=== PATIENT | male | born 1975 ===

== ENCOUNTER 2017-12-03 05:21 | Inpatient (IN) | payer OTHER ==
[~2017-12-03] VITALS: Ht 185.4 cm; Wt 118.4 kg
[2017-12-03] VITALS (11 sets, daily range): BP systolic 113–128; BP diastolic 73–86
[~2017-12-03 05:21] MED LIST: NKM
[2017-12-03] MEDS ORDERED: Dexamethasone 4mg/ml vial ONE (07:09)
[2017-12-03] MEDS ORDERED: Lidocaine 1% MPF 10mg/ml 5ml ONE (07:09)
[2017-12-03] MEDS ORDERED: Propofol 200mg/20ml IV ONE (07:09)
[2017-12-03] MEDS ORDERED: fentaNYL 100 mcg/2 mL IV ONE (07:17)
[2017-12-03] MEDS ORDERED: Ketamine 500mg Inj ONE (07:18)
[2017-12-03] MEDS ORDERED: Vancomycin 1gm inj IVPB ONE (07:25)
[2017-12-03] MEDS ORDERED: Thrombin 5000 units spray kit TOPIC ONE (07:25)
[2017-12-03] MEDS ORDERED: Thrombin 5000 units TOPIC ONE (07:25)
[2017-12-03] MEDS ORDERED: Gelfoam Size TOPIC ONE (07:25)
[2017-12-03] MEDS ORDERED: Bupivacaine 0.5% Inj 30 ml vial INJ ONE (07:26)
[2017-12-03] MEDS ORDERED: Gelfoam Absorbable 1gm powder pkt TOPIC ONE (07:26)
[2017-12-03] MEDS ORDERED: Bacitracin 50000 Units Vial ONE (07:26)
[2017-12-03] MEDS ORDERED: Lidocaine 1% 10mg/ml/Epi 0.005mg/ml 30ml vial INJ ONE (07:26)
[2017-12-03] MEDS ORDERED: EPINEPHrine 1mg/1ml Amp ONE (07:26)
[2017-12-03] MEDS ORDERED: Zemuron 50mg/5ml Inj IV ONE (07:31)
[2017-12-03] MEDS ORDERED: Dyna-Hex 2% Top Sol 2oz TOPIC ONE (07:40)
--- NOTE | 2017-12-03 07:50 | Anethesia Preoperative Eval ---
Anesthesia Pre-op PMH/ROS General Date of Evaluation: Dec 03, 2017 Time of Evaluation: 07:20 Anesthesiologist: ASA Score: ASA 2 Mallampati Score Class I : Soft palate, uvula, fauces, pillars visible Class II: Soft palate, uvula, fauces visible Class III: Soft palate, base of uvula visible Class IV: Only hard plate visible Mallampati Classification: Class II Surgeon: tenzin Diagnosis: back pain Surgical Procedure: left sided lumbar 4- sacral 1 microdisectomy Anesthesia History: none Allergies: Coded Allergies: No Known Allergies (Unverified , 12/02/17) Medications: see eMAR Past Medical History Cardiovascular: Denies: HTN, CAD, [place], valve dz, arrhythmia, other Pulmonary: Denies: asthma, COPD, [place], other Gastrointestinal/Genitourinary: Denies: GERD, CRI, ESRD, other Neurologic/Psychiatric: Denies: dementia, CVA, depression/anxiety, TIA, other Endocrine: Denies: DM, hypothyroidism, steroids, other HEENT: Denies: cataract (L), cataract (R), glaucoma, [place] (L), [place] (R), other Hematology/Immune: Denies: anemia, DVT, bleeding disorder, other Musculoskeletal/Integumentary: Denies: OA, RA, DJD, DDD, edema, other Other: obesity Anesthesia Pre-op Phys. Exam Physician Exam Last Vital Signs Date Time Temp Pulse Resp B/P (MAP) Pulse Ox O2 Delivery O2 Flow Rate FiO2 12/03/17 06:00 97.5 62 20 125/77 (93) 97 97.5 12/03/17 05:57 Room Air Constitutional: NAD Cardiovascular: RRR Respiratory: CTA Gastrointestinal: S/NT/ND Airway Exam Mallampati Score: Class II MO: full ROM: full Teeth: intact Dentures: no upper, no lower Anesthesia Pre-op A/P Risk Assessment & Plan Assessment: asa 2 Plan: ETGA Status Change Before Surgery: No Pre-Antibiotics Drug: ancef 2 grams Given Within 1 Hr of Incision: Yes Time Given: 08:30 Karin Crawley M.D. Dec 03, 2017 07:50
[2017-12-03] MEDS ORDERED: Propofol 1,000mg/ 100ml btl IV ONE (08:00)
[2017-12-03] MEDS ORDERED: LR 1000ml ONE (08:00)
[2017-12-03] MEDS ORDERED: NS Irrig 1000ml ONE (08:00)
[2017-12-03] MEDS ORDERED: Sterile Water Irrig 1000ml IRRIG ONE (08:00)
--- NOTE | 2017-12-03 08:14 | Pre-Procedure Note/Attestation ---
Pre-Procedure Note/Attestation Complete Prior to Procedure Planned Procedure: not applicable Procedure Narrative: Left L4-S1 decompression Indications for Procedure Pre-Operative Diagnosis: Back pain with left sided radiculopathy Attestation I attest that I discussed the nature of the procedure; its benefits; risks and complications; and alternatives (and the risks and benefits of such alternatives ), prior to the procedure, with the patient (or the patient's legal inbound sales representative). I attest that, if there was a reasonable possibility of needing a blood transfusion, the patient (or the patient's legal inbound sales representative) was given the [facility] standardized written summary, pursuant to the [place] Blood Safety Act ([place] Health and Safety Code # 1645, as amended). I attest that I re-evaluated the patient just prior to the surgery and that there has been no change in the patient's H&P, except as documented below: Terrence Ramirez Dec 03, 2017 08:14
[2017-12-03] MEDS ORDERED: Acetaminophen (Non formulary) 100 ML IV SCH (09:00)
[2017-12-03] MEDS ORDERED: LR 1000ml 1,000 ML IVLG SCH (09:21)
--- NOTE | 2017-12-03 09:25 | Immediate Post-Op Evaluation ---
Immediate Post-Op Evalulation Immediate Post-Op Evalulation Procedure: left L4-S1 microdiscectomy Date of Evaluation: Dec 03, 2017 Time of Evaluation: 11:26 IV Fluids: LR 1200ml Blood Products: 0 Estimated Blood Loss: 150ml Urinary Output: 300ml Blood Pressure Systolic: 128 Blood Pressure Diastolic: 86 Pulse Rate: 70 Respiratory Rate: 14 O2 Sat by Pulse Oximetry: 100 Temperature (Fahrenheit): 97.3 Pain Score (1-10): 0 Nausea: No Vomiting: No Complications none Patient Status: awake, patent, none Hydration Status: adequate Drug: ancef 2 grams Given Within 1 Hr of Incision: Yes Time Given: 08:30 Karin Crawley M.D. Dec 03, 2017 09:24
[2017-12-03] MEDS ORDERED: Midazolam 2mg/2ml Inj IVP PRN (09:30)
[2017-12-03] MEDS ORDERED: Hydromorphone 0.5mg/0.5ml inj IVP PRN (09:30)
[2017-12-03] MEDS ORDERED: fentaNYL 100 mcg/2 mL IV PRN (09:30)
[2017-12-03] MEDS ORDERED: DiphenhydrAMINE 50mg/ml Inj IVP PRN (09:30)
[2017-12-03] MEDS ORDERED: Labetalol 5mg/ml 20ml vial IV PRN (09:30)
[2017-12-03] MEDS ORDERED: Glycopyrrolate 0.2mg/ml 1ml Vial ONE (10:33)
[2017-12-03] MEDS ORDERED: Neostigmine 1mg/ml 10ml Inj ONE (10:33)
[2017-12-03] MEDS ORDERED: Ketorolac 30mg Inj ONE (10:44)
--- NOTE | 2017-12-03 11:05 | Diagnostic Imaging Report ---
Indication: Intraoperative imaging, back pain and left lower extremity pain Technique: Intraoperative images Comparison: none Findings: Intraoperative images demonstrate surgical tool posterior to L4-5. Impression: Intraoperative imaging, as described
--- NOTE | 2017-12-03 11:41 | 48 Hour Post Anesthesia Eval ---
Post Anesthesia Evaluation Procedure: left L4-S1 microdiscectomy Date of Evaluation: Dec 03, 2017 Time of Evaluation: 11:45 Blood Pressure Systolic: 119 0: 82 Pulse Rate: 67 Respiratory Rate: 22 Temperature (Fahrenheit): 97.4 O2 Sat by Pulse Oximetry: 100 Airway: patent Nausea: No Vomiting: No Pain Intensity: 0 Hydration Status: adequate Mental Status/LOC: patient returned to baseline Post-Anesthesia Complications: none Follow-up care needed: N/A Karin Crawley M.D. Dec 03, 2017 11:41
[2017-12-03] MEDS ORDERED: Hydromorphone 0.5mg/0.5ml inj SUBQ PRN (14:21)
[2017-12-03] MEDS ORDERED: Methocarbamol 750mg tab ORAL PRN (14:22)
[2017-12-03] MEDS: Docusate 100mg cap ORAL SCH (17:06)
[2017-12-03] MEDS: Norco 5mg/325mg tab ORAL PRN ×2 (17:06→22:37)
[2017-12-03] MEDS: ceFAZolin sod 2 GM in D5W 110 ML IV SCH (17:08)
--- NOTE | 2017-12-03 19:15 | Operative Note - Dictated ---
DATE OF OPERATION: 12/03/2017 SURGEON: Terrence Ramirez M.D. INDICATION FOR SURGERY: The patient is a pleasant gentleman, who presented with symptoms of left-sided lumbar radiculopathy and back pain. He had attempted and failed conservative measures. We discussed surgical and non-surgical options. The patient requested to proceed with surgical interventions. RISKS AND BENEFITS DISCUSSION: The patient was appraised of all objectives, benefits, risks, and potential complications of the procedure including, but not limited to, worsening of current status, possible need for further procedures, risk of infection, headache, CSF leak, possible spinal cord injury resulting in paralysis, injury to major blood vessels, chronic hemorrhage, stroke, loss of language function, coma, and even . No assurance was given whether these symptoms will improve following the procedure. Informed consent was obtained and secured in the chart after the patient voiced understanding of these risks and decided to proceed with the operation. PREOPERATIVE DIAGNOSES: 1. L4-L5 and L5-S1 left-sided stenosis. 2. Low back pain. 3. Left-sided lumbar radiculopathy. POSTOPERATIVE DIAGNOSES: 1. L4-L5 and L5-S1 left-sided stenosis. 2. Low back pain. 3. Left-sided lumbar radiculopathy. OPERATIONS: 1. Left-sided L4-L5 and L5-S1 laminotomies and partial fasciectomies for resection of L4-L5 and L5-S1 herniated disc including decompression. 2. Microscope. 3. Fluoroscope. 4. Neuromonitoring. 5. Left-sided L4-L5 and L5-S1 facet joint injections and paraspinal injections for postoperative pain control. 6. Modifier for extra time spent during dissection due to the patient's extremely difficult anatomy and increased BMI, all of which would headed approximately additional 30 to 45 minutes beyond operative time. SURGEON: Terrence Ramirez M.D. FREIGHT SOLICITOR: None. ANESTHESIA: TOOL ANALYST. ESTIMATED BLOOD LOSS: Approximately 30 mL. FINDINGS: Stenosis and decompression at traversing nerve roots at L4-L5 and L5-S1. SPECIMEN SENT: Herniated discs at L4-L5 and L5-S1 transected. COMPLICATIONS: None. TECHNIQUE: The patient was brought into the operating room. He was sedated and intubated by the anesthesia team. He was transferred to the operating table on prone position. Preoperative antibiotics were given. Eyes were taped shut after ointment was applied to prevent corneal abrasion. Marce Hugger was placed over the lower body to maintain control of core body temperature. Ivy catheter was inserted. All pressure points were carefully padded. Neuromonitoring team placed the needles in appropriate position and baselines were obtained. C-arm was brought in and operative levels were . The skin was prepped and draped in the standard surgical fashion. A time-out was taken. A linear incision was performed with a scalpel blade and dissection was carried down to the fascial layer. The fascia was then opened unilaterally and dissection was continued over the lamina and medial aspect of the facet joints at L4-L5 and L5-S1. It should be noted that extra time was spent during this dissection due to the patient's difficult anatomy. Fluoroscope was used to confirm the correct levels. Microscope was brought in. Attention was first placed at the L4-L5 level. Left-sided L4 laminotomy was performed followed by a partial facetectomy. The ligamentum flavum was removed and the traversing exiting nerve roots were localized and an incision was placed into the posterior longitudinal ligament. The herniated disc was removed and sent to pathology. Decompression of the left L5 traversing nerve root was confirmed. Copious amounts of antibiotic irrigation was used. An excellent hemostasis was maintained. Attention was then placed towards the L5-S1 level and the same process was repeated at the L5-S1 level. Watertight closure of the fascial layer was then performed. Left-sided L5-S1 and L4-L5 facial joint injections were carried down including paraspinal injection for postoperative pain control. The subcutaneous layer and skin edges were all reapproximated with sutures. Skin glue was applied as a final layer and all needle count, sponge count, and instrument counts were correct at the end of the case x2. The neuromonitoring signals were stable throughout the entire case. The patient was transferred to recovery in stable condition. His family was updated after surgery. The patient was moving all extremities without difficulty. Terrence Ramirze MD DR: KEY JOB#: [id number] CC:
[2017-12-04] MEDS: ceFAZolin sod 2 GM in D5W 110 ML IV SCH ×2 (00:45→09:05)
[2017-12-04 04:00] VITALS: BP 98/55
[2017-12-04 08:00] VITALS: BP 100/50
[2017-12-04] MEDS: Docusate 100mg cap ORAL SCH (09:05)
[2017-12-04] MEDS ORDERED: NORCO 10-325 T1 EACH ORAL ×2 (11:56→11:57)
[2017-12-04] MEDS ORDERED: ROBAXIN IJ (12:03)
[2017-12-04] MEDS ORDERED: ROBAXIN-750750 MG PO (12:03)
--- NOTE | 2017-12-05 19:15 | Progress Note ---
DATE: 12/04/2017 SUBJECTIVE: The patient is status post lumbar spine surgery, doing well. No nausea or vomiting. No chills. The patient underwent surgery without difficulty. He is doing well. He has not taken any pain medication for few hours. PHYSICAL EXAMINATION: HEENT: Normocephalic and atraumatic. Extraocular muscles intact. NECK: No JVD. No carotid bruits. HEART: S1 and S2. LUNGS: Clear. ABDOMEN: Soft. EXTREMITIES: No clubbing or cyanosis. BACK: Wound has slight bleeding. PLAN: Per , the patient will have change of wound dressing. Dedrick Camarena M.D. DR: JOHN JOB#: [id number] CC:
--- NOTE | 2017-12-07 11:51 | Discharge Summary ---
Discharge Summary Hospital Course Date of Admission Dec 03, 2017 at 05:21 Date of Discharge Dec 04, 2017 at 14:07 Admitting Diagnosis back pain, left lumbar stenosis with radiculopathy Reason for Hospitalization: elective surgery HPI Mynor Sutton is a 41 year old male who was admitted on Dec 03, 2017 at 05:21 for back pain, left lumbar stenosis with radiculopathy. Patient admitted for elective surgery. Consultations dr Camarena IM Procedures s/p 12/03/[address] Ramirez 1. Left-sided L4-L5 and L5-S1 laminotomies and partial fasciectomies for resection of L4-L5 and L5-S1 herniated disc including decompression. 2. Microscope. 3. Fluoroscope. 4. Neuromonitoring. 5. Left-sided L4-L5 and L5-S1 facet joint injections and paraspinal injections for postoperative pain control. 6. Modifier for extra time spent during dissection due to the patient's extremely difficult anatomy and increased BMI, all of which would headed approximately additional 30 to 45 minutes beyond usual operative time. Hospital Course s/p surgery Course of recovery uneventful Initially IV fluid s/p perioperative empiric antibiotics 3 doses Neurovascular status closely monitored, remained stable Pain management provided; pain addressed and controlled Dressing clean, dry ,and intact Ambulated with physical therapist, fall precautions maintained Safe for ambulation independently Incentive spirometry use was encouraged while in the bed Started on diet as tolerated ,antiemetics when necessary Patient was able to tolerate diet, IVF discontinued Voided freely Bowel regimen instituted Discharge instuactions provided Patient was stable for discharge home Patient follow-up with surgeon as outpatient as advised by surgeon FINAL DIAGNOSES 1. L4-L5 and L5-S1 left-sided stenosis. 2. Low back pain. 3. Left-sided lumbar radiculopathy. 4. s/p left L4-S1 microdiscectomy 5. Discharge Medications Continued Medications: Hydrocodone Bit/Acetaminophen 10-325* (Mims 10-325*) 1 Each Tablet 1 TAB ORAL Q4H PRN for For Pain, #30 TAB 0 Refills (This prescription has been renewed) PRN PAIN Methocarbamol* (Robaxin-750*) 750 Mg Tablet 750 MG PO QID for muscle spasm, #60 TAB 0 Refills (This prescription has been renewed) Discharge Condition Upon Discharge: stable Discharge Disposition Patient was discharged to Home (01) Discharge Instructions Discharge Instructions Special Instructions I have been assigned to complete a D/C Summary on this account. I was not involved in the patient management Johana Crow NP Dec 07, 2017 11:51
== END 2017-12-04 14:07 | disposition home or self-care (01) | DRG 520 ==
LOC: SDSOVERFLO 05:21 → 3E 12:45
PROC: 01NB0ZZ Release Lumbar Nerve, Open Approach (ICD-10-PCS; principal; 2017-12-03 07:30)
PROC: 3E0U3BZ Introduction of Anesthetic Agent into Joints, Percutaneous Approach (ICD-10-PCS; principal; 2017-12-03 07:30)
PROC: 0ST40ZZ Resection of Lumbosacral Disc, Open Approach (ICD-10-PCS; principal; 2017-12-03 07:30)
DX: M51.16 Intervertebral disc disorders with radiculopathy, lumbar region (principal); M48.061 Spinal stenosis, lumbar region without neurogenic claudication; M48.07 Spinal stenosis, lumbosacral region
CPT/HCPCS: 72020; 76000; 87081; 94003; 94150; J2405; J2710